=== PATIENT | female | born 1965 | race Hispanic/Latino ===

== ENCOUNTER 2022-01-05 05:33 | Observation (INO) | payer MEDICARE ==
[2022-01-03 09:43] LABS: BASOPHILS % (AUTO) 0.2 % (0.0-5.0); EOSINOPHILS % (AUTO) 1.3 % (0.0-8.0); HEMATOCRIT 35.8 % (36-48); MEAN CORPUSCULAR HEMOGLOBIN 25.8 pg (27.0-33.0); MEAN CORPUSCULAR VOLUME 83.3 fL (79-99); MONOCYTES % (AUTO) 6.3 % (3.0-13.0); NEUTROPHILS % (AUTO) 68.8 % (40.0-77.0); PLATELET COUNT (AUTO) 241 K/uL (130-400); RED CELL DISTRIBUTION WIDTH 15.3 % (11.0-15.5); WHITE BLOOD COUNT (AUTO) 5.2 K/uL (4.8-10.8)
[2022-01-03 09:47] LABS: ALBUMIN 3.6 g/dL (3.5-5.0); CARBON DIOXIDE 28 mmol/L (21-32); CHLORIDE 104 mmol/L (101-111); GLOMERULAR FILTR. RATE CALC 61 mL/min (>60); GLUCOSE,RANDOM 159 mg/dL (70-105); POTASSIUM 4.1 mmol/L (3.5-5.1); SODIUM SERUM 138 mmol/L (136-145); UREA NITROGEN, BLOOD 13 mg/dL (7-18)
[2022-01-03 09:53] LABS: CRP QUANTITATIVE < 2.00 mg/L (0.00-9.0)
[2022-01-03 09:54] LABS: INR 0.95 (0.85-1.15); PROTHROMBIN TIME 10.4 SEC (9.6-11.6)
[2022-01-03 09:55] LABS: PARTIAL THROMBOPLASTIN TIME 24.9 SEC (26.3-35.5)
[2022-01-04 10:20] VITALS: BP 164/82
[2022-01-05] VITALS (27 sets, daily range): BP systolic 134–216; BP diastolic 62–99
[~2022-01-05] VITALS: Ht 154.9 cm; Wt 80.6 kg
[~2022-01-05 05:33] MED LIST: AEC81 PO; CLAR-59 PO; CLON0.1T PO; FLUT1BLS3 IH; INSU100I40 SQ; KETOROLAC 30MG VIAL (30MG/ML) ONE; LORA10TA7 PO; LOSA100T58 PO; MELA10CA2 PO; METF-444 PO; MONT-39 PO; MV-M1TAB20 PO; NITR0.4T50 SL; ONDA-104 PO; PREG75CA75 PO; RABE20TA30 PO; ROPIVACAINE 0.5% 5MG/ML 30ML IJ ONE; SERT200C PO; TRANEXAMIC ACID 1000MG/10ML ONE
[2022-01-05] MEDS ORDERED: CEFAZOLIN SODIUM 1 GM VIAL IVP SCH (06:00)
[2022-01-05] MEDS ORDERED: 0.9%NACL 1000ML 1,000 ML IV ONE (06:43)
[2022-01-05] MEDS: CEFAZOLIN SODIUM 1 GM VIAL IVP SCH ×2 (06:45→21:00)
[2022-01-05] MEDS ORDERED: PROPOFOL 10 MG/ML 20ML VIAL IV ONE (06:52)
[2022-01-05] MEDS ORDERED: LIDOCAINE PF 100MG/5ML (2%) SYRINGE 5ML ONE (06:55)
[2022-01-05] MEDS ORDERED: GLYCOPYRROLATE 1 MG/5 ML SYRINGE ONE (06:56)
[2022-01-05] MEDS ORDERED: NEOSTIGMINE 5MG/5ML SYR IV ONE (06:56)
[2022-01-05] MEDS ORDERED: MIDAZOLAM HCL 1 MG/ML 2ML VIAL ONE (06:56)
[2022-01-05] MEDS ORDERED: PHENYLEPHRINE HCL 10 MG/ML 1ML VIAL IV ONE (06:57)
[2022-01-05] MEDS ORDERED: ONDANSETRON 4MG INJ ONE (06:58)
[2022-01-05] MEDS ORDERED: ROCURONIUM 10MG/1ML SYR 10 MG/ML ML ONE (06:58)
[2022-01-05] MEDS ORDERED: FENTANYL CITRATE PF 50 MCG/1 ML 2ML VIAL ONE ×2 (06:59→08:12)
[2022-01-05] MEDS ORDERED: DEXAMETHASONE SOD PHOSPHATE 4 MG/ML 1ML VIAL ONE ×2 (07:10→07:11)
[2022-01-05] MEDS ORDERED: DEXAMETHASONE SOD PHOSPHATE 10MG/ML 1ML VIAL ONE (07:12)
[2022-01-05] MEDS ORDERED: ROPIVACAINE 0.5% 5MG/ML 30ML IJ ONE (07:32)
[2022-01-05] MEDS ORDERED: KCL 20 MEQ ERTAB PO PRN (09:00)
[2022-01-05] MEDS ORDERED: HYDROCODONE/ACETAMINOPHEN 5/325 MG TAB PO PRN (09:00)
[2022-01-05] MEDS: ASPIRIN 325MG TAB PO SCH (09:00)
[2022-01-05] MEDS ORDERED: LIDOCAINE HCL-MPF 1% 2ML VIAL IV PRN (09:00)
[2022-01-05] MEDS ORDERED: POTASSIUM CHLORIDE 20MEQ/100ML 100 ML IV PRN (09:00)
[2022-01-05] MEDS ORDERED: FERROUS FUMARATE 324 MG TABLET PO PRN (09:00)
[2022-01-05] MEDS: GABAPENTIN 100 MG CAPSULE PO SCH ×3 (09:00→20:13)
[2022-01-05] MEDS ORDERED: POTASSIUM CHLORIDE 10% ELIXIR 20 MEQ/15 ML UDCUP PO PRN (09:00)
[2022-01-05] MEDS: KETOROLAC 15MG/ML VIAL (15MG/ML) IV SCH ×2 (09:00→16:32)
[2022-01-05] MEDS: 0.9%NACL 1000ML 1,000 ML IV SCH ×2 (09:00→16:32)
[2022-01-05] MEDS ORDERED: CALCIUM CARB 500MG PO PRN (09:00)
[2022-01-05] MEDS ORDERED: ONDANSETRON 4MG INJ IVP PRN (09:00)
[2022-01-05] MEDS: POLYETHYLENE GLYCOL 3350 17 GM POWD.PACK PO SCH (09:00)
[2022-01-05] MEDS: DOCUSATE SODIUM 100 MG CAP PO SCH ×2 (09:00→20:18)
[2022-01-05] MEDS ORDERED: HYDRALAZINE 20MG/ML VIAL ONE (09:48)
[2022-01-05] MEDS ORDERED: HYDROMORPHONE 1 MG INJ ONE (09:48)
[2022-01-05] MEDS: HYDROCODONE/ACETAMINOPHEN 5/325 MG TAB PO PRN ×2 (12:09→17:34)
[2022-01-05] MEDS ORDERED: NITROGLYCERIN 0.4 MG SL TAB SL PRN (12:30)
[2022-01-05] MEDS: METFORMIN HCL 500 MG TABLET PO SCH (16:32)
[2022-01-05] MEDS: TRAMADOL HCL 50 MG TABLET PO PRN (20:12)
[2022-01-05] MEDS: SERTRALINE HCL 50 MG TABLET PO SCH (20:13)
[2022-01-05] MEDS: CYCLOBENZAPRINE HCL 10 MG TABLET PO PRN (20:13)
[2022-01-05] MEDS: **HM**MELATONIN 10MG PO SCH (20:14)
[2022-01-06] VITALS (7 sets, daily range): BP systolic 119–204; BP diastolic 58–95
[2022-01-06] MEDS: KETOROLAC 15MG/ML VIAL (15MG/ML) IV SCH (00:36)
[2022-01-06] MEDS: 0.9%NACL 1000ML 1,000 ML IV SCH (01:15)
[2022-01-06 04:29] LABS: HEMATOCRIT 28.9 % (36-48); MEAN CORPUSCULAR HEMOGLOBIN 25.6 pg (27.0-33.0); MEAN CORPUSCULAR HGB CONC 31.5 g/dL (32.0-36.0); MEAN CORPUSCULAR VOLUME 81.4 fL (79-99); RED BLOOD CELL COUNT(AUTO) 3.55 MIL/uL (4.00-5.50); RED CELL DISTRIBUTION WIDTH 15.4 % (11.0-15.5); WHITE BLOOD COUNT (AUTO) 6.1 K/uL (4.8-10.8)
[2022-01-06 04:39] LABS: CREATININE 0.9 mg/dL (0.5-1.5); POTASSIUM 3.7 mmol/L (3.5-5.1)
[2022-01-06] MEDS: HYDROCODONE/ACETAMINOPHEN 5/325 MG TAB PO PRN ×4 (06:25→20:04)
[2022-01-06] MEDS: VIT D3 COMPLETE PO SCH (07:37)
[2022-01-06] MEDS: ASPIRIN 325MG TAB PO SCH (08:18)
[2022-01-06] MEDS: METFORMIN HCL 500 MG TABLET PO SCH ×2 (08:18→15:53)
[2022-01-06] MEDS: LOSARTAN 100 MG TABLET PO SCH (08:18)
[2022-01-06] MEDS: GABAPENTIN 100 MG CAPSULE PO SCH ×3 (08:18→20:02)
[2022-01-06] MEDS: LORATADINE 10 MG TABLET PO SCH (08:18)
[2022-01-06] MEDS: MONTELUKAST SODIUM 10 MG TAB PO SCH (08:18)
[2022-01-06] MEDS: **HM**TRELEGY ELLIPTA IH SCH (08:19)
[2022-01-06] MEDS: RABEPRAZOLE 20 MG PO SCH (08:19)
[2022-01-06] MEDS: POLYETHYLENE GLYCOL 3350 17 GM POWD.PACK PO SCH (08:19)
[2022-01-06] MEDS: DOCUSATE SODIUM 100 MG CAP PO SCH ×2 (08:19→20:02)
[2022-01-06] MEDS: TRAMADOL HCL 50 MG TABLET PO PRN ×2 (08:21→15:53)
[2022-01-06] MEDS: CLONIDINE HCL 0.1 MG TABLET PO PRN ×2 (15:53→20:03)
[2022-01-06] MEDS: CYCLOBENZAPRINE HCL 10 MG TABLET PO PRN (17:06)
[2022-01-06] MEDS ORDERED: KETOROLAC 15MG/ML VIAL (15MG/ML) ONE (17:53)
[2022-01-06] MEDS ORDERED: KETOROLAC 15MG/ML VIAL (15MG/ML) IM ONE (18:00)
[2022-01-06] MEDS: SERTRALINE HCL 50 MG TABLET PO SCH (20:02)
[2022-01-06] MEDS: **HM**MELATONIN 10MG PO SCH (20:12)
[2022-01-07 04:05] VITALS: BP 128/66
[2022-01-07] MEDS: HYDROCODONE/ACETAMINOPHEN 5/325 MG TAB PO PRN ×4 (05:59→21:34)
[2022-01-07] MEDS: **HM**TRELEGY ELLIPTA IH SCH (07:56)
[2022-01-07] MEDS: RABEPRAZOLE 20 MG PO SCH (07:57)
[2022-01-07] MEDS: VIT D3 COMPLETE PO SCH (07:57)
[2022-01-07 08:00] VITALS: BP 132/61
[2022-01-07] MEDS: METFORMIN HCL 500 MG TABLET PO SCH ×2 (08:33→16:47)
[2022-01-07] MEDS: POLYETHYLENE GLYCOL 3350 17 GM POWD.PACK PO SCH (08:33)
[2022-01-07] MEDS: MONTELUKAST SODIUM 10 MG TAB PO SCH (08:34)
[2022-01-07] MEDS: TRAMADOL HCL 50 MG TABLET PO PRN ×2 (08:34→19:57)
[2022-01-07] MEDS: DOCUSATE SODIUM 100 MG CAP PO SCH ×2 (08:34→19:55)
[2022-01-07] MEDS: LOSARTAN 100 MG TABLET PO SCH ×2 (08:34→09:25)
[2022-01-07] MEDS: LORATADINE 10 MG TABLET PO SCH (08:34)
[2022-01-07] MEDS: GABAPENTIN 100 MG CAPSULE PO SCH ×3 (08:36→19:55)
[2022-01-07] MEDS: CYCLOBENZAPRINE HCL 10 MG TABLET PO PRN ×2 (09:25→17:48)
[2022-01-07] MEDS: ASPIRIN 325MG TAB PO SCH (09:29)
[2022-01-07] MEDS ORDERED: MAGNESIUM HYDROXIDE 30 ML/UDCUP PO SCH (11:30)
[2022-01-07 11:50] VITALS: BP 125/50
[2022-01-07] MEDS ORDERED: KETOROLAC 30MG VIAL (30MG/ML) IVP SCH (12:00)
[2022-01-07] MEDS ORDERED: BISACODYL 10 MG SUPP.RECT RC ONE (15:12)
[2022-01-07 16:00] VITALS: BP 126/58
[2022-01-07] MEDS ORDERED: CELECOXIB 200 MG CAP PO SCH (17:30)
[2022-01-07] MEDS ORDERED: CELE200 PO (17:40)
[2022-01-07] MEDS ORDERED: HYDR-4060 PO (17:40)
[2022-01-07] MEDS ORDERED: CYCL-309 PO (17:40)
[2022-01-07] MEDS ORDERED: ASPI-1026 PO (17:40)
[2022-01-07] MEDS ORDERED: DOCU-116 PO (17:40)
[2022-01-07] MEDS: SERTRALINE HCL 50 MG TABLET PO SCH (19:54)
[2022-01-07] MEDS: **HM**MELATONIN 10MG PO SCH (19:55)
[2022-01-07 20:06] VITALS: BP 111/50
[2022-01-08] MEDS ORDERED: BISACODYL 10 MG SUPP.RECT RC PRN (09:00)
== END 2022-01-07 22:53 ==
LOC: DAH 05:33 → DAHIP 05:34 → DAH 05:34 → 4CH 11:46
PROVIDERS: ADMIT Student in an Organized Health Care Education/Training Program; ATTEND Student in an Organized Health Care Education/Training Program
DX: M17.12 Unilateral primary osteoarthritis, left knee (principal); Z20.822 Contact with and (suspected) exposure to COVID-19; G89.29 Other chronic pain; M25.562 Pain in left knee; D62 Acute posthemorrhagic anemia; I10 Essential (primary) hypertension; E11.9 Type 2 diabetes mellitus without complications; G47.30 Sleep apnea, unspecified; Z86.73 Personal history of transient ischemic attack (TIA), and cerebral infarction without residual deficits; Z79.82 Long term (current) use of aspirin; Z79.899 Other long term (current) drug therapy; Z98.890 Other specified postprocedural states
CPT/HCPCS: 82040; 80048 ×2; 84703; 85025; 85610; 85730; 84134; 86140; 87426; 36415 ×2; 87641; 97039 ×7; 27447; 96374; 96375; 76942; 64447; 82948 ×13; 73560; 97161; 96376 ×2; 96372; 85027; 97116 ×3; 97530 ×2; J1100 ×3; A4221; A4663; J7030 ×2; A4215 ×2; J3010 ×2; J0690 ×2; J1170; J3490 ×2; J2710; J2001; J0360; J2250; J2704; J2405; J1885 ×5; J2795 ×2; J2370; G0168; A4649 ×2; C1776; A6255; A5120; A4223; A4222; G0378

== ENCOUNTER → 2023-05-11 | Outpatient (CLI) | payer MEDICARE ==
[~2023-05-11] MED LIST changes: -AEC81 PO; +ASPI-1026 PO; +CELE200 PO; +CYCL-309 PO; +DOCU-116 PO; +HYDR-4060 PO; -INSU100I40 SQ; +INSU100I56 SQ; -KETOROLAC 30MG VIAL (30MG/ML) ONE; -LOSA100T58 PO; +LOSA100T59 PO; -PREG75CA75 PO; +PREG75CA76 PO; -ROPIVACAINE 0.5% 5MG/ML 30ML IJ ONE; -TRANEXAMIC ACID 1000MG/10ML ONE
== END | disposition home or self-care (01) ==
LOC: RAH 13:31
PROVIDERS: ATTEND Nurse Practitioner
DX: M22.41 Chondromalacia patellae, right knee (principal); M23.91 Unspecified internal derangement of right knee
CPT/HCPCS: 73721